=== PATIENT | male | born 1970 | race Caucasian/White ===

== ENCOUNTER 2023-11-01 00:50 | Emergency (ER) | payer OTHER ==
--- NOTE | 2023-11-01 01:27 | ED Physician Documentation ---
History of Present Illness - Stated complaint Stated Complaint: ABD/BACK PX - Chief complaint Chief Complaint: Abd Pain - History obtained from History obtained from: Patient - Additonal information Additional information: 53yM with history of esophageal rigidity and narrowing, gastric scarring, gerd, p/w nbnb n/v and epigastric pain intermittent X 3 weeks, worsening tonight. denies fever, diarrhea, cp, soa or urinary sx. PD PAST MEDICAL HISTORY - Past Medical History Past Medical History: Yes Cardiovascular: High cholesterol Endocrine/Autoimmune: HyPOthyroidism GI: GERD - Past Surgical History Past Surgical History: Yes General: Appendectomy - Present Medications Home Medications: Ambulatory Orders Medication Instructions Recorded Confirmed Aspirin Chewable [[place] 81 mg PO DAILY 11/01/23 11/01/23 Aspirin] Atorvastatin Calcium [Atorvaliq] 20 mg PO DAILY 11/01/23 11/01/23 Cholecalciferol (Vitamin D3) 1 tab PO DAILY 11/01/23 11/01/23 [Vitamin D3] Esomeprazole Magnesium [Nexium 20 mg PO DAILY 11/01/23 11/01/23 24Hr] Levothyroxine Sodium 1 cap PO DAILY 11/01/23 11/01/23 Ondansetron Odt [Zofran Odt] 4 mg TL Q6H PRN #10 tablet 11/01/23 - Allergies Allergies/Adverse Reactions: Allergies Allergy/AdvReac Type Severity Reaction Status Date / Time pregabalin [From Lyrica] Allergy Hallucinati Verified 11/01/23 01:11 ons - Social History Does the pt smoke?: No Smoking Status: Never smoker Does the pt drink ETOH?: No Does the pt have substance abuse?: No - Immunizations Immunizations are current?: Yes - POLST Patient has POLST: No PD ED PE NORMAL - Vitals Vital signs reviewed: Yes - General General: Alert and oriented X 3, No acute distress, Well developed/nourished - HEENT HEENT: Atraumatic, PERRL, EOMI - Neck Neck: Supple, no meningeal sign - Cardiac Cardiac: RRR - Respiratory Respiratory: No respiratory distress, Clear bilaterally - Abdomen Abdomen: Non tender, Non distended, Other (epigastrium discomfort to palpation) - Back Back: No CVA TTP - Derm Derm: Normal color, Warm and dry Results - Vitals Vitals: Vital Signs - 24 hr 11/01/23 11/01/23 01:06 02:20 Temperature 36.3 C L Heart Rate 71 58 L Respiratory 18 15 Rate Blood Pressure 128/88 H 118/71 O2 Saturation 97 95 Oxygen O2 Source Room air - EKG (time done) 0112 EKG releavant findings:: EKG personally interpreted by author of this note. Relevant findings are: Rate: Rate (enter#) (64) Rhythm: NSR [place]: Normal Intervals: Normal [place] QRS: Normal Ischemia: Normal ST segments - Labs Labs: Laboratory Tests 11/01/23 11/01/23 11/01/23 01:25 01:28 01:28 WBC 12.2 H RBC 5.01 Hgb 15.5 Hct 44.7 MCV 89.2 MCH 30.9 MCHC 34.7 RDW 12.9 Plt Count 317 MPV 9.5 Neut # (Auto) 6.4 Lymph # (Auto) 4.3 H [place] # (Auto) 0.8 Eos # (Auto) 0.6 Baso # (Auto) 0.2 H Absolute Nucleated RBC 0.00 Nucleated RBC % 0.0 Sodium 136 Potassium 3.5 Chloride 98 L Carbon Dioxide 29 Anion Gap 9.0 BUN 17 Creatinine 1.0 Estimated GFR (MDRD) 78 L Glucose 117 H Calcium 9.3 Total Bilirubin 1.1 H AST 22 ALT 54 Alkaline Phosphatase 65 Total Protein 7.1 Albumin 4.6 Globulin 2.5 Albumin/Globulin Ratio 1.8 Lipase 172 H Urine Color YELLOW Urine Clarity CLEAR Urine pH 6.0 Ur Specific [place] 1.025 Urine Protein NEGATIVE Urine Glucose (UA) NEGATIVE Urine Ketones TRACE Urine Occult Blood NEGATIVE Urine Nitrite NEGATIVE Urine Bilirubin NEGATIVE Urine Urobilinogen 1 (NORMAL) Ur Leukocyte Esterase NEGATIVE Ur Microscopic Review NOT INDICATED Urine Culture Comments NOT INDICATED PD Medical Decision Making - ED course ED course: 53yM presents to the ED with epigastric abdominal pain, nausea and vomiting likely 2/2 gerd and structural GI issues. Labwork without acute issues. Patient feeling better s/p symptomatic care. plan to f/u outpatient with his GI. return precautions given. Departure - Departure Disposition: 01 Home, Self Care Clinical Impression: Vomiting, Abdominal pain Condition: Stable Instructions: GERD Prescriptions: Ondansetron Odt [Zofran Odt] 4 mg TL Q6H PRN #10 tablet PRN Reason: Nausea / Vomiting Comments: You were seen in the emergency department for abdominal pain and vomiting. Your labwork uncovered no emergent issues but you do need to follow up with [facility]. Electronic prescription for zofran was sent to [facility] in [place]. Please follow-up with your primary care provider as well and return to the emergency department if you have any new or worsening symptoms or other concerns. Forms: PCP List
[2023-11-01] MEDS ORDERED: SODIUM CHLORIDE 0.9% 1,000 ML IV STA (01:34)
[2023-11-01 01:35] LABS: BASOPHILS # (AUTO) 0.2 10^3/uL (0.0-0.1); BASOPHILS % (AUTO) 1.3 %; EOSINOPHILS # (AUTO) 0.6 10^3/uL (0.0-0.7); EOSINOPHILS % (AUTO) 4.8 %; HCT - HEMATOCRIT 44.7 % (42.0-52.0); HGB - HEMOGLOBIN 15.5 g/dL (14.0-18.0); LYMPHOCYTES # (AUTO) 4.3 10^3/uL (1.5-3.5); MEAN CORPUSCULAR HEMOGLOBIN 30.9 pg (27.0-31.0); MEAN CORPUSCULAR HGB CONC 34.7 g/dL (32.0-36.0); MEAN CORPUSCULAR VOLUME 89.2 fL (80.0-94.0); MEAN PLATELET VOLUME 9.5 fL (7.4-11.4); MONOCYTES # (AUTO) 0.8 10^3/uL (0.0-1.0); MONOCYTES % (AUTO) 6.4 %; NEUTROPHILS # (AUTO) 6.4 10^3/uL (1.5-6.6); NEUTROPHILS % (AUTO) 52.3 %; PLT - PLATELET COUNT 317 10^3/uL (130-450); RED BLOOD COUNT 5.01 10^6/uL (4.70-6.10); RED CELL DISTRIBUTION WIDTH 12.9 % (12.0-15.0); WHITE BLOOD COUNT 12.2 x10^3/uL (4.8-10.8)
[2023-11-01] MEDS ORDERED: diphenhydrAMINE ELIXIR 25 MG/10 ML UDC PO STA (01:35)
[2023-11-01] MEDS ORDERED: LIDOCAINE VISCOUS 2% 15 ML ORAL SYRINGE MM STA (01:35)
[2023-11-01] MEDS ORDERED: ONDANSETRON 4 MG/2 ML VIAL IVP STA (01:35)
[2023-11-01] MEDS ORDERED: MAG HYDROX/AL HYDROX/SIMETH 30 ML UDC PO STA (01:35)
[2023-11-01] MEDS ORDERED: FAMOTIDINE 20 MG/2 ML VIAL IVP STA (01:35)
[2023-11-01 01:40] LABS: GLUCOSE, URINE (UA) NEGATIVE (NEGATIVE); KETONES,URINE (UA) TRACE mg/dL (NEGATIVE); LEUKOCYTE ESTERASE, URINE NEGATIVE (NEGATIVE); NITRITE,URINE NEGATIVE (NEGATIVE); OCCULT BLOOD,URINE NEGATIVE (NEGATIVE); PROTEIN,URINE NEGATIVE (NEGATIVE); UROBILINOGEN,URINE 1 (NORMAL) E.U./dL (NORMAL)
[2023-11-01 01:44] LABS: BILIRUBIN,URINE NEGATIVE (NEGATIVE); CLARITY,URINE CLEAR (CLEAR); ICTOTEST,URINE NEGATIVE
[2023-11-01 02:01] LABS: ALBUMIN 4.6 g/dL (3.2-5.5); ALBUMIN/GLOBULIN RATIO 1.8 (1.0-2.2); BILIRUBIN,TOTAL 1.1 mg/dL (0.2-1.0); CALCIUM 9.3 mg/dL (8.5-10.3); POTASSIUM 3.5 mmol/L (3.5-4.5); TOTAL PROTEIN 7.1 g/dL (6.4-8.9)
[2023-11-01 02:58] VITALS: BP 123/80
[2023-11-01 03:08] VITALS: O2SAT 100
== END 2023-11-01 03:08 | disposition home or self-care (01) ==
LOC: ED 00:50
DX: R11.2 Nausea with vomiting, unspecified (principal); R10.13 Epigastric pain
CPT/HCPCS: 36415; 80053; 81003; 83690; 85025; 93005; 96374; 96375; 99284; A9270; 81001; 87086

== ENCOUNTER 2023-12-02 11:16 | Day surgery (SDC) | payer OTHER ==
[2023-12-02] MEDS ORDERED: LACTATED RINGERS 1,000 ML IV ONE ×2 (11:55→13:10)
[2023-12-02] MEDS ORDERED: PROPOFOL 500 MG/50 ML 500 MG/50 ML VIAL ONE (12:01)
[2023-12-02] MEDS ORDERED: LIDOCAINE-PF 2% 10 ML AMP SUBQ ONE (12:01)
[2023-12-02] MEDS ORDERED: MIDAZOLAM 2 MG/2 ML VIAL ONE (12:01)
--- NOTE | 2023-12-02 12:07 | ANESTHESIA ---
Pre-Anesthesia VS, & Labs - Diagnosis abd pain, screening, gerd - Procedure egd, cscope Vital Signs: Temp Pulse Resp BP Pulse Ox O2 Flow Rate 36.2 C L 62 17 121/76 98 12/02/23 11:30 12/02/23 11:30 12/02/23 11:30 12/02/23 11:30 12/02/23 11:30 Height: 5 ft 9 in Weight (kg): 86 kg Body Mass Index: 28.0 BMI Classification: Overweight - NPO >8 hours Last Fluid Intake: am prep - Lab Results Lab results reviewed: Yes Home Medications and Allergies Home Medications: Ambulatory Orders Albuterol 2.5 mg INH TID 12/01/23 Escitalopram [Lexapro] 10 mg PO DAILY 12/01/23 Esomeprazole Magnesium [Nexium 24Hr] 20 mg PO DAILY 12/01/23 Atorvastatin Calcium [Atorvaliq] 20 mg PO DAILY 11/01/23 Levothyroxine Sodium 1 cap PO DAILY 11/01/23 Albuterol 2.5 mg INH TID 12/01/23 Escitalopram [Lexapro] 10 mg PO DAILY 12/01/23 Esomeprazole Magnesium [Nexium 24Hr] 20 mg PO DAILY 12/01/23 Allergies/Adverse Reactions: Allergies Allergy/AdvReac Type Severity Reaction Status Date / Time pregabalin [From Lyrica] Allergy Hallucinati Verified 11/01/23 01:11 ons Anes History & Medical History - Anesthetic History Anesthesia Complications: reports: No previous complications Family history of Anesthesia Complications: Denies Family history of Malignant Hyperthermia: Denies - Medical History Cardiovascular: reports: High cholesterol Pulmonary: reports: Asthma Gastrointestinal: reports: GERD, Hiatal hernia Urinary: reports: None Musculoskeletal: reports: None Endocrine/Autoimmune: reports: HyPOthyroidism. denies: Type 2 diabetes Skin: reports: None Smoking Status: Never smoker - Surgical History General: reports: Appendectomy, EGD Exam General: Alert, Oriented x3, Cooperative Dental: WNL Mouth Openin Fingerbreadth Neck Mobility: Normal Mallampati classification: II Respiratory: Lungs clear, Normal breath sounds, No respiratory distress, Decreased breath sounds Cardiovascular: Regular rate Plan Anesthesia Type: Total IV Consent for Procedure(s) Verified and Reviewed: Yes Code Status: Attempt Resuscitation ASA classification: 2-Mild systemic disease Is this case an emergency?: No
[2023-12-02] MEDS ORDERED: PROPOFOL 200 MG/20 ML VIAL IVP ONE ×2 (12:36→12:53)
[2023-12-02 13:23] VITALS: BP 102/61
[2023-12-02 13:43] VITALS: O2SAT 97
--- NOTE | 2023-12-02 14:04 | ANESTHESIA POST OP EVALUATION ---
Anesthesia Post Eval - Post Anesthesia Eval Vitals: Last Vital Signs Temp 36.2 C L 12/02/23 11:30 Pulse 62 12/02/23 13:38 Resp 17 12/02/23 13:38 BP 102/61 12/02/23 13:38 Pulse Ox 97 12/02/23 13:38 O2 Flow Rate CV Function Including HR & BP: Stable Pain Control: Satisfactory Nausea & Vomiting: Negative Mental Status: Baseline Respiratory Status: Airway Patent Hydration Status: Satisfactory Anesthesia Complications: None
== END 2023-12-02 11:17 | disposition home or self-care (01) ==
LOC: SDS 11:16
PROVIDERS: ATTEND Surgery
PROC: 0DBK8ZZ Excision of Ascending Colon, Via Natural or Artificial Opening Endoscopic (ICD-10-PCS; 2023-12-02)
PROC: 0DBL8ZZ Excision of Transverse Colon, Via Natural or Artificial Opening Endoscopic (ICD-10-PCS; 2023-12-02)
PROC: 0DB58ZX Excision of Esophagus, Via Natural or Artificial Opening Endoscopic, Diagnostic (ICD-10-PCS; principal; 2023-12-02 13:00)
PROC: 0DB78ZX Excision of Stomach, Pylorus, Via Natural or Artificial Opening Endoscopic, Diagnostic (ICD-10-PCS; 2023-12-02 13:00)
DX: Z12.11 Encounter for screening for malignant neoplasm of colon (principal); D12.3 Benign neoplasm of transverse colon; D12.2 Benign neoplasm of ascending colon; K21.9 Gastro-esophageal reflux disease without esophagitis; R10.13 Epigastric pain; R14.0 Abdominal distension (gaseous); Z80.0 Family history of malignant neoplasm of digestive organs; Z83.719 Family history of colon polyps, unspecified; K44.9 Diaphragmatic hernia without obstruction or gangrene; J45.909 Unspecified asthma, uncomplicated
CPT/HCPCS: 43239; 45380; 45385; J7120

== ENCOUNTER 2023-12-03 22:19 | Emergency (ER) | payer OTHER ==
[2023-12-03] MEDS ORDERED: ONDANSETRON 4 MG/2 ML VIAL IVP STA (22:28)
[2023-12-03] MEDS ORDERED: SODIUM CHLORIDE 0.9% 1,000 ML IV STA (22:28)
[2023-12-03] MEDS ORDERED: MORPHINE 2 MG/ML CARPUJECT IVP STA (22:28)
[2023-12-03 22:42] LABS: BASOPHILS % (AUTO) 0.4 %; EOSINOPHILS # (AUTO) 0.1 10^3/uL (0.0-0.7); EOSINOPHILS % (AUTO) 1.4 %; HCT - HEMATOCRIT 43.6 % (42.0-52.0); LYMPHOCYTES # (AUTO) 3.5 10^3/uL (1.5-3.5); LYMPHOCYTES % (AUTO) 33.3 %; MEAN CORPUSCULAR HGB CONC 34.4 g/dL (32.0-36.0); MEAN CORPUSCULAR VOLUME 87.2 fL (80.0-94.0); MEAN PLATELET VOLUME 10.2 fL (7.4-11.4); MONOCYTES # (AUTO) 0.7 10^3/uL (0.0-1.0); MONOCYTES % (AUTO) 6.9 %; NEUTROPHILS % (AUTO) 57.8 %; PLT - PLATELET COUNT 260 10^3/uL (130-450); RED CELL DISTRIBUTION WIDTH 12.4 % (12.0-15.0); WHITE BLOOD COUNT 10.4 x10^3/uL (4.8-10.8)
[2023-12-03 22:49] LABS: PT - PROTHROMBIN TIME 11.1 secs (9.9-12.6)
[2023-12-03 23:01] LABS: ALBUMIN 4.5 g/dL (3.2-5.5); ALBUMIN/GLOBULIN RATIO 1.6 (1.0-2.2); BILIRUBIN,TOTAL 1.3 mg/dL (0.2-1.0); CALCIUM 9.3 mg/dL (8.5-10.3); CREATININE 0.9 mg/dL (0.6-1.3); POTASSIUM 3.4 mmol/L (3.5-4.5); TOTAL PROTEIN 7.4 g/dL (6.4-8.9)
[2023-12-03] MEDS ORDERED: iohexoL-300 100 ML VIAL ONE (23:35)
--- NOTE | 2023-12-03 23:49 | ED Physician Documentation ---
PD HPI ABD PAIN - Stated complaint Stated Complaint: ABD PX/POST OP - Chief complaint Chief Complaint: Abd Pain - History obtained from History obtained from: Patient, Family - Additional information Additional information: 53-year-old male with history of Gastric stricture, GERD presents by private vehicle from home for nausea, vomiting, midepigastric abdominal pain that began after eating dinner. Patient underwent colonoscopy and EGD with Dr. Jernigan on 12/02/2022 where biopsies were taken and patient was discharged home after an eventful scope. Patient ate some Scal potatoes and several bites of ham when symptoms began. No medications taken prior to arrival. PD PAST MEDICAL HISTORY - Past Medical History Past Medical History: Yes Cardiovascular: High cholesterol Respiratory: Asthma Endocrine/Autoimmune: HyPOthyroidism GI: GERD, Hiatal hernia : None HEENT: Chronic vision loss Psych: Anxiety Musculoskeletal: None Derm: None - Past Surgical History Past Surgical History: Yes General: Appendectomy, Colonoscopy, EGD - Present Medications Home Medications: Ambulatory Orders Medication Instructions Recorded Confirmed Atorvastatin Calcium [Atorvaliq] 20 mg PO DAILY 11/01/23 12/03/23 Levothyroxine Sodium 112 mcg PO DAILY 11/01/23 12/03/23 Albuterol 2.5 mg INH TID PRN 12/01/23 12/03/23 Escitalopram [Lexapro] 10 mg PO DAILY 12/01/23 12/03/23 Esomeprazole Magnesium [Nexium 20 mg PO DAILY 12/01/23 12/03/23 24Hr] - Allergies Allergies/Adverse Reactions: Allergies Allergy/AdvReac Type Severity Reaction Status Date / Time pregabalin [From Lyrica] Allergy Hallucinati Verified 12/03/23 22:22 ons - Social History Does the pt smoke?: No Smoking Status: Never smoker Does the pt drink ETOH?: No Does the pt have substance abuse?: No - Immunizations Immunizations are current?: Yes - POLST Patient has POLST: No Results - Vitals Vitals: Vital Signs - 24 hr 12/03/23 12/03/23 12/04/23 22:22 23:32 00:03 Temperature 36.8 C Heart Rate 54 L 53 L 67 Respiratory 18 17 13 Rate Blood Pressure 160/85 H 146/83 H 116/63 O2 Saturation 100 100 93 12/04/23 12/04/23 12/04/23 01:00 05:08 07:00 Temperature Heart Rate 71 55 L 59 L Respiratory 16 19 16 Rate Blood Pressure 142/79 H 128/72 129/79 O2 Saturation 97 98 96 Oxygen O2 Source Room air - EKG (time done) 2236 EKG releavant findings:: EKG personally interpreted by author of this note. Relevant findings are: Rate: Rate (enter#) (50) Rhythm: Sinus bradycardia [place]: Normal Intervals: Normal [place] QRS: Normal Ischemia: Normal ST segments - Labs Labs: Laboratory Tests 12/03/23 12/03/23 12/03/23 22:39 22:39 22:39 WBC 10.4 RBC 5.00 Hgb 15.0 Hct 43.6 MCV 87.2 MCH 30.0 MCHC 34.4 RDW 12.4 Plt Count 260 MPV 10.2 Neut # (Auto) 6.0 Lymph # (Auto) 3.5 [place] # (Auto) 0.7 Eos # (Auto) 0.1 Baso # (Auto) 0.0 Absolute Nucleated RBC 0.00 Nucleated RBC % 0.0 PT 11.1 INR 1.0 Sodium 136 Potassium 3.4 L Chloride 100 L Carbon Dioxide 24 Anion Gap 12.0 BUN 9 Creatinine 0.9 Estimated GFR (MDRD) 88 L Glucose 125 H Calcium 9.3 Total Bilirubin 1.3 H AST 15 ALT 23 Alkaline Phosphatase 67 Total Protein 7.4 Albumin 4.5 Globulin 2.9 Albumin/Globulin Ratio 1.6 Lipase 57 Urine Color Urine Clarity Urine pH Ur Specific [place] Urine Protein Urine Glucose (UA) Urine Ketones Urine Occult Blood Urine Nitrite Urine Bilirubin Urine Urobilinogen Ur Leukocyte Esterase Ur Microscopic Review Urine Culture Comments 12/04/23 01:16 WBC RBC Hgb Hct MCV MCH MCHC RDW Plt Count MPV Neut # (Auto) Lymph # (Auto) [place] # (Auto) Eos # (Auto) Baso # (Auto) Absolute Nucleated RBC Nucleated RBC % PT INR Sodium Potassium Chloride Carbon Dioxide Anion Gap BUN Creatinine Estimated GFR (MDRD) Glucose Calcium Total Bilirubin AST ALT Alkaline Phosphatase Total Protein Albumin Globulin Albumin/Globulin Ratio Lipase Urine Color YELLOW Urine Clarity CLEAR Urine pH 7.0 Ur Specific Points <=1.005 Urine Protein NEGATIVE Urine Glucose (UA) NEGATIVE Urine Ketones NEGATIVE Urine Occult Blood NEGATIVE Urine Nitrite NEGATIVE Urine Bilirubin NEGATIVE Urine Urobilinogen 0.2 (NORMAL) Ur Leukocyte Esterase NEGATIVE Ur Microscopic Review NOT INDICATED Urine Culture Comments NOT INDICATED PD Medical Decision Making - ED course Complexity details: reviewed old records, reviewed results, re-evaluated patient, considered differential, d/w patient, d/w family, d/w analytics consultant ED course: Right upper quadrant abdominal discomfort after eating. Patient has recent colonoscopy but his pain is localized to the right upper quadrant. Will order labs, pain medications, CT imaging. Laboratory work is reviewed, no leukocytosis. Electrolytes within normal limits. T. bili 1.3, however this is unchanged significantly from previous results. CT of the abdomen and pelvis with contrast shows gallstones with gallbladder thickening concerning for acute cholecystitis. Patient reassessed, resting comfortably in bed, states his pain is controlled but he does wince when his upper quadrant is palpated. Call placed to Dr. Iyer of general surgery, who will see the patient in the morning and requested ultrasound, which was ordered for the morning. Patient and significant other updated at bedside of general surgery recommendations and plan. They are in agreement at this time. Care of patient signed to Dr. Malloy at 0700. Pending general surgeon evaluation and US of RUQ Departure - Departure Disposition: 01 Home, Self Care Clinical Impression: Biliary colic, Cholelithiases Condition: Stable Instructions: ED Gallstone W Biliary Colic Follow-Up: Sung Jernigan MD [Provider Admit Priv/Credential] - Comments: You have been evaluated with CT scan, ultrasound, and labs, and have seen the surgeon in consult here in the emergency department. Your scopes from a few days ago looked good, and the surgeon feels that most likely, your upper abdominal pain is actually due to the gallstone that is in your gallbladder. It may be beneficial for you to have your gallbladder removed and as such, the surgery team would like to see you as an outpatient in their clinic. They are making arrangements for this at this time. Because you do not currently have inflammation of the gallbladder or any obstruction, you do not need to have your gallbladder emergently removed today. However, if your symptoms get worse and become unbearable, or if you become jaundiced and develop a fever and vomiting that will not stop, please return to the emergency department. Forms: PCP List Discharge Date/Time: 12/04/23 09:04
[2023-12-04] MEDS ORDERED: iohexoL-300 100 ML VIAL IVP ONE (00:10)
--- NOTE | 2023-12-04 00:45 | CT Report ---
PROCEDURE: Abdomen/Pelvis W INDICATIONS: POSTPRANDIAL MIDEPIGASTRIC/RUQ PAIN CONTRAST: 100 ML OMNI 300 TECHNIQUE: After the administration of intravenous contrast, a CT scan of the abdomen and pelvis was performed. Images were recorded and evaluated at appropriate window settings. Reformats: coronal and sagittal. F or radiation dose reduction, the following was used: automated exposure control, adjustment of mA and /or kV according to patient size. COMPARISON: None. FINDINGS: Image quality: Excellent. Lung bases and heart: Unremarkable. Liver: No solid mass. Gallbladder and biliary tree: The gallbladder appears mildly inflamed, with slight gallbladder wall t hickening. Note is made of somewhat serpiginous calcifications adjacent to the gallbladder in a patte rn suggestive of contiguous gallstones within the cystic duct best seen on series 2 image 46. Similar radiodensity is seen within the posterior border of the gallbladder lumen indicating densely calcifi ed gallstones within the gallbladder itself. Spleen: No splenomegaly. Pancreas: No pancreatic ductal dilation. Adrenals: No adrenal nodule. Kidneys and ureters: No hydronephrosis. No renal cystic lesion which requires follow up. No solid mas s. Bowel and peritoneum: No bowel distension. No pathologic free fluid. Lymph nodes: No central or retroperitoneal adenopathy. Vessels: No infrarenal aortic aneurysm. PELVIS Reproductive organs: Unremarkable. Bladder: No abnormal wall thickening, accounting for underdistention. Pelvic lymph nodes: No pelvic adenopathy by size criteria. Adjacent to the cecum. There is linear rad iodensity suggestive of possible prior appendectomy. Bones: No aggressive osseous abnormality. Other: No significant ventral or inguinal hernia. IMPRESSION: Abnormal gallbladder inflammation with what appears to be contiguous gallstones densely calcified wit hin the cystic duct. Similar radiodensity is present within the dependent margin of the gallbladder l umen. Gallbladder wall thickening is present. Cholecystitis is suspected. Possible prior appendectomy . Reviewed by: Hai Ram MD on 12/04/2023 12:43 AM PST Approved by: Hai Ram MD on 12/04/2023 12:43 AM PST Station ID: [id number]
[2023-12-04] MEDS ORDERED: KETOROLAC 15 MG/ML VIAL IVP STA (01:01)
[2023-12-04] MEDS ORDERED: SODIUM CHLORIDE 0.9% 1,000 ML IV STA (01:01)
[2023-12-04 02:01] LABS: BILIRUBIN,URINE NEGATIVE (NEGATIVE); GLUCOSE, URINE (UA) NEGATIVE (NEGATIVE); KETONES,URINE (UA) NEGATIVE (NEGATIVE); LEUKOCYTE ESTERASE, URINE NEGATIVE (NEGATIVE); NITRITE,URINE NEGATIVE (NEGATIVE); OCCULT BLOOD,URINE NEGATIVE (NEGATIVE); PROTEIN,URINE NEGATIVE (NEGATIVE); UROBILINOGEN,URINE 0.2 (NORMAL) E.U./dL (NORMAL)
[2023-12-04 02:04] LABS: CLARITY,URINE CLEAR (CLEAR)
[2023-12-04 07:19] VITALS: BP 129/79; O2SAT 96
--- NOTE | 2023-12-04 08:44 | ED Physician Documentation ---
ED Addendum - Addendum Addendum: 12/04/23 08:42 The patient was shot signed out to me at change of shift, pending evaluation by surgery after presenting to the emergency department on my partner's shift with upper abdominal pain. The patient had just had endoscopy and colonoscopy a few days ago which were unremarkable. His labs were also unremarkable. CT head showed possible choledocholithiasis but ultrasound showed a contracted gallbladder with a stone in the gallbladder but normal common bile duct diameter and no obvious choledocholithiasis. The patient was evaluated by Dr. Iyer of surgery, who felt at this point the patient most likely has biliary colic. He feels the patient is a good candidate for outpatient follow-up and consideration of elective cholecystectomy. He has notified the clinic to help arrange some follow-up for this patient and We have given the patient indications for the return to the emergency department, including worsening pain, intractable vomiting, fever, and/or jaundice. Final impression: 1. Biliary colic 2. Cholelithiasis Disposition: Discharged home in stable and improved condition.
--- NOTE | 2023-12-04 08:47 | CONSULTATION NOTE ---
Surgery Consult - Home Meds/Allergies Home Medications: Patient History Medication Instructions Recorded Confirmed Atorvastatin Calcium [Atorvaliq] 20 mg PO DAILY 11/01/23 12/03/23 Levothyroxine Sodium 112 mcg PO DAILY 11/01/23 12/03/23 Albuterol 2.5 mg INH TID PRN 12/01/23 12/03/23 Escitalopram [Lexapro] 10 mg PO DAILY 12/01/23 12/03/23 Esomeprazole Magnesium [Nexium 20 mg PO DAILY 12/01/23 12/03/23 24Hr] Allergies/Adverse Reactions: Allergies Allergy/AdvReac Type Severity Reaction Status Date / Time pregabalin [From Lyrica] Allergy Hallucinati Verified 12/03/23 22:22 ons - Vital Signs Vital Signs: Last Vital Signs Temp 98.2 F 12/03/23 22:22 Pulse 59 L 12/04/23 07:00 Resp 16 12/04/23 07:00 BP 129/79 12/04/23 07:00 Pulse Ox 96 12/04/23 07:00 O2 Flow Rate Intake & Output: Intake & Output 12/01/23 12/02/23 12/03/23 12/04/23 23:59 23:59 23:59 23:59 Intake Total 1000 Balance 1000 - Lab Results Result Diagrams: 12/03/23 22:39 12/03/23 22:39 - Consultation Note Consultation Note: General Surgery Consultation Note Assessment: 1) Biliary colic, recurrent. No clinical, lab, or image findings consistent with acute cholecystitis or ascending cholangitis. The patient's abdominal discomfort has resolved. 2) History of GERD/Esophageal stricture Recommendation: 1) Avoid fatty foods 2) Continue PPI for GERD symptoms 3) Arrange for this patient to be seen by Dr. Jernigan in the out-patient clinic to be scheduled for elective cholecystectomy <><><><><><><><><><> Reason for Consultation Abdominal pain BARBARA Nieto is a 53 year old male who while swallowing a potato last evening developed mid-epigastric pain that was sharp and constant and radiated to the RUQ. It was similar to prior episodes of RUQ discomfort that have occurred but worse in severity. He was seen by Dr. Jernigan 2 days ago during which time EGD and CS were performed. There was no evidence of esophagitis, gastritis, or esophageal narrowing on EGD. In the ED, IV analgesics were given to control his discomfort. A CT scan identified a few small gallstones. This morning, an US was performed. During my exam at 0800, the patient was in no pain and without nausea or emesis. Past Medical History GERD Hyperlipidemia Hypothyroidism Anxiety Past Surgical History Appendectomy Current Medications See "Medication" section Allergies See "Allergy" section ROS Pertinent positives At the present time he is asymptomatic. On presentation to the ED he had epigastric and RUQ pain, mild nausea and emesis All other reviewed systems negative Physical Examination Vital Signs: See "Vital Signs" section BMI: 28 GENERAL APPEARANCE: Normal development, normal body habitus, normal grooming PSYCHIATRIC: AAO; Comfortable EYES: Pupils equal, round and reactive to light, sclera anicteric EARS, NOSE, MOUTH, THROAT: Hearing normal, Oral mucous membranes moist and without lesions; NECK: No crepitus, lymphadenopathy, or thyromegaly LUNGS: Clear to auscultation without wheezing; No use of accessory muscles to breathe CARDIOVASCULAR: Heart-NSR without murmurs; Palpable carotid arteries - no bruits; ABD: Soft, no distension, no RUQ tenderness or fullness; BS+ LYMPHATIC: Neck, Axillae, Groin no palpable adenopathy SKIN: Anicteric; No rashes, lesions, Ulcerations Labs See "Labs" section T.Carl 1.3 (chronic); All other LFTs normal Imaging CT Abd/Pelvis - Gallstones in an otherwise normal appearing gallbladder that is not-contracted but not distended US RUQ - Small gallstones in a contracted gallbladder All images were personally reviewed by me for this encounter. Jacob Iyer MD, FACS General Surgery Service [phone]
--- NOTE | 2023-12-04 09:06 | Ultrasound Report ---
PROCEDURE: Abdomen Limited INDICATIONS: RUQ PAIN, POSS CHOLECYSTITIS TECHNIQUE: Real-time focused scanning was performed of the abdomen, with image documentation. COMPARISONS: None. FINDINGS: Liver: Liver is normal in size and heterogeneous in echotexture. The main portal vein demonstrates n ormal size and hepatopedal flow. Gallbladder: The gallbladder is decompressed, which limits its evaluation. Echogenic gallstones can b e seen within the gallbladder. Mild pericholecystic fluid is seen. The gallbladder wall measures 5 mm . The sonographic Hernandez's is negative. Biliary ducts: Intrahepatic bile ducts are non-dilated. Extrahepatic bile duct caliber measures 4 m m. Normal is 6-7 mm or less in diameter, or 10 mm or less post-cholecystectomy. Pancreas: The pancreas is not well seen. Right kidney: Normal in size and echotexture. Right kidney measures 10.7 cm long. No hydronephrosis or nephrolithiasis. No solid masses. No complex renal cystic lesions which require follow-up. IVC: Intrahepatic inferior vena cava is patent. Miscellaneous: No free abdominal fluid. IMPRESSION: Gallstones and pericholecystic fluid can be seen. The gallbladder wall thickening is nonspecific, sec ondary to contracted state of the gallbladder. The sonographic Hernandez's is negative. No biliary dilatation is seen. Reviewed by: Patric Hernandez MD on 12/04/2023 8:04 AM [facility] Approved by: Patric Hernandez MD on 12/04/2023 8:04 AM [facility] Station ID: [id number]
== END 2023-12-04 09:04 | disposition home or self-care (01) ==
LOC: ED 22:19
DX: K80.40 Calculus of bile duct with cholecystitis, unspecified, without obstruction (principal)
CPT/HCPCS: 36415; 74177; 76705; 80053; 81003; 83690; 85025; 85610; 93005; 96374; 96375; 99284; Q9967; 81001; 87086

== ENCOUNTER 2023-12-13 00:33 | Emergency (ER) | payer OTHER ==
[2023-12-13 01:53] LABS: BASOPHILS # (AUTO) 0.1 10^3/uL (0.0-0.1); BASOPHILS % (AUTO) 0.8 %; EOSINOPHILS # (AUTO) 0.4 10^3/uL (0.0-0.7); EOSINOPHILS % (AUTO) 3.2 %; HCT - HEMATOCRIT 44.3 % (42.0-52.0); HGB - HEMOGLOBIN 14.8 g/dL (14.0-18.0); LYMPHOCYTES # (AUTO) 3.4 10^3/uL (1.5-3.5); LYMPHOCYTES % (AUTO) 29.8 %; MEAN CORPUSCULAR HEMOGLOBIN 30.2 pg (27.0-31.0); MEAN CORPUSCULAR HGB CONC 33.4 g/dL (32.0-36.0); MEAN CORPUSCULAR VOLUME 90.4 fL (80.0-94.0); MEAN PLATELET VOLUME 9.5 fL (7.4-11.4); MONOCYTES # (AUTO) 0.9 10^3/uL (0.0-1.0); MONOCYTES % (AUTO) 7.8 %; NEUTROPHILS # (AUTO) 6.5 10^3/uL (1.5-6.6); PLT - PLATELET COUNT 348 10^3/uL (130-450); RED CELL DISTRIBUTION WIDTH 12.7 % (12.0-15.0); WHITE BLOOD COUNT 11.3 x10^3/uL (4.8-10.8)
[2023-12-13 02:14] LABS: ALBUMIN 4.3 g/dL (3.2-5.5); ALBUMIN/GLOBULIN RATIO 1.8 (1.0-2.2); BILIRUBIN,TOTAL 1.2 mg/dL (0.2-1.0); CALCIUM 9.7 mg/dL (8.5-10.3); POTASSIUM 3.9 mmol/L (3.5-4.5); TOTAL PROTEIN 6.7 g/dL (6.4-8.9)
[2023-12-13 03:48] VITALS: BP 141/96; O2SAT 100
--- NOTE | 2023-12-13 05:55 | ED Physician Documentation ---
PD HPI ABD PAIN - Stated complaint Stated Complaint: ABD PX - Chief complaint Chief Complaint: Abd Pain PD PAST MEDICAL HISTORY - Past Medical History Cardiovascular: High cholesterol Respiratory: Asthma Endocrine/Autoimmune: HyPOthyroidism GI: GERD, Hiatal hernia : None HEENT: Chronic vision loss Psych: Anxiety Musculoskeletal: None Derm: None - Past Surgical History Past Surgical History: Yes General: Appendectomy, Colonoscopy, EGD - Present Medications Home Medications: Ambulatory Orders Medication Instructions Recorded Confirmed Atorvastatin Calcium [Atorvaliq] 20 mg PO DAILY 11/01/23 12/13/23 Levothyroxine Sodium 112 mcg PO DAILY 11/01/23 12/13/23 Albuterol 2.5 mg INH TID PRN 12/01/23 12/13/23 Escitalopram [Lexapro] 10 mg PO DAILY 12/01/23 12/13/23 Esomeprazole Magnesium [Nexium 20 mg PO DAILY 12/01/23 12/13/23 24Hr] - Allergies Allergies/Adverse Reactions: Allergies Allergy/AdvReac Type Severity Reaction Status Date / Time pregabalin [From Lyrica] Allergy Hallucinati Verified 12/13/23 00:50 ons - Social History Does the pt smoke?: No Smoking Status: Never smoker Does the pt drink ETOH?: No Does the pt have substance abuse?: No - Immunizations Immunizations are current?: Yes - POLST Patient has POLST: No Results - Vitals Vitals: Vital Signs - 24 hr 12/13/23 12/13/23 00:47 03:39 Temperature 35.5 C L 30.3 C L Heart Rate 69 62 Respiratory 26 H 24 Rate Blood Pressure 131/87 H 141/96 H O2 Saturation 99 100 Oxygen O2 Source Room air - Labs Labs: Laboratory Tests 12/13/23 12/13/23 01:50 01:50 WBC 11.3 H RBC 4.90 Hgb 14.8 Hct 44.3 MCV 90.4 MCH 30.2 MCHC 33.4 RDW 12.7 Plt Count 348 MPV 9.5 Neut # (Auto) 6.5 Lymph # (Auto) 3.4 Mcminn # (Auto) 0.9 Eos # (Auto) 0.4 Baso # (Auto) 0.1 Absolute Nucleated RBC 0.00 Nucleated RBC % 0.0 Sodium 139 Potassium 3.9 Chloride 101 Carbon Dioxide 33 H Anion Gap 5.0 L BUN 11 Creatinine 1.0 Estimated GFR (MDRD) 78 L Glucose 107 H Calcium 9.7 Total Bilirubin 1.2 H AST 15 ALT 25 Alkaline Phosphatase 67 Total Protein 6.7 Albumin 4.3 Globulin 2.4 Albumin/Globulin Ratio 1.8 Lipase 43 PD Medical Decision Making - ED course ED course: I was not involved in this patient's ED care. Patient left without being seen by ED MD. Departure - Departure Forms: PCP List
== END 2023-12-13 05:55 | disposition left against medical advice (07) ==
LOC: ED 00:33
DX: Z53.21 Procedure and treatment not carried out due to patient leaving prior to being seen by health care provider (principal)
CPT/HCPCS: 36415; 80053; 83690; 85025

== ENCOUNTER 2023-12-18 01:17 | Emergency (ER) | payer OTHER ==
--- NOTE | 2023-12-18 01:32 | ED Physician Documentation ---
PD HPI ABD PAIN - Stated complaint Stated Complaint: NAUSEA/ABD PX - Chief complaint Chief Complaint: Abd Pain - History obtained from History obtained from: Patient - Additional information Additional information: HPI from patient. Patient c/o RUQ and epigastric pain, sudden onset one hour PLUM[employer] P[employer] FITTING with nausea and vomiting in proportion to severity of pain. Symptoms awoke patient from sleep, no exacerbating nor ameliorating factors. Similar symptoms which have been attributed to biliary colic. He is scheduled for cholecystectomy later this month. Review of Systems Constitutional: reports: Reviewed and negative Cardiac: reports: Reviewed and negative Respiratory: reports: Reviewed and negative GI: reports: Abdominal Pain, Nausea, Vomiting. denies: Constipation, Diarrhea, Hematemesis, Bloody / black stool PD PAST MEDICAL HISTORY - Past Medical History Past Medical History: Yes Cardiovascular: High cholesterol Respiratory: Asthma Endocrine/Autoimmune: HyPOthyroidism GI: GERD, Hiatal hernia : None HEENT: Chronic vision loss Psych: Anxiety Musculoskeletal: None Derm: None - Past Surgical History Past Surgical History: Yes General: Appendectomy, Colonoscopy, EGD - Present Medications Home Medications: Ambulatory Orders Medication Instructions Recorded Confirmed Atorvastatin Calcium [Atorvaliq] 20 mg PO DAILY 11/01/23 12/18/23 Levothyroxine Sodium 112 mcg PO DAILY 11/01/23 12/18/23 Albuterol 2.5 mg INH TID PRN 12/01/23 12/18/23 Escitalopram [Lexapro] 10 mg PO DAILY 12/01/23 12/18/23 Esomeprazole Magnesium [Nexium 20 mg PO DAILY 12/01/23 12/18/23 24Hr] oxyCODONE [Roxicodone] 5 mg PO Q4-6H PRN #14 tablet 12/18/23 - Allergies Allergies/Adverse Reactions: Allergies Allergy/AdvReac Type Severity Reaction Status Date / Time pregabalin [From Lyrica] Allergy Hallucinati Verified 12/18/23 01:27 ons - Social History Does the pt smoke?: No Smoking Status: Never smoker Does the pt drink ETOH?: No Does the pt have substance abuse?: No - Immunizations Immunizations are current?: Yes - POLST Patient has POLST: No PD ED PE NORMAL - Vitals Vital signs reviewed: Yes - General General: Alert and oriented X 3, No acute distress, Well developed/nourished - Cardiac Cardiac: RRR - Respiratory Respiratory: No respiratory distress, Clear bilaterally - Abdomen Abdomen: Normal bowel sounds, Soft, Non tender, Non distended - Derm Derm: Normal color, Warm and dry PD ED PE EXPANDED - Cardiac Cardiac: S3 Results - Vitals Vitals: Oxygen O2 Source Room air - Labs Labs: Laboratory Tests 12/18/23 12/18/23 02:10 02:10 WBC 9.2 RBC 4.96 Hgb 14.8 Hct 44.0 MCV 88.7 MCH 29.8 MCHC 33.6 RDW 12.5 Plt Count 308 MPV 10.0 Neut # (Auto) 4.5 Lymph # (Auto) 3.5 Schleicher # (Auto) 0.7 Eos # (Auto) 0.4 Baso # (Auto) 0.1 Absolute Nucleated RBC 0.00 Nucleated RBC % 0.0 Sodium 137 Potassium 3.6 Chloride 103 Carbon Dioxide 27 Anion Gap 7.0 BUN 9 Creatinine 0.9 Estimated GFR (MDRD) 88 L Glucose 121 H Calcium 9.0 Total Bilirubin 1.3 H AST 13 ALT 18 Alkaline Phosphatase 67 Total Protein 6.6 Albumin 4.2 Globulin 2.4 Albumin/Globulin Ratio 1.8 Lipase 110 H PD Medical Decision Making - ED course Complexity details: reviewed old records, reviewed results, re-evaluated patient, considered differential, d/w patient ED course: Normal CBC and no concerning findings on ER abdominal panel; normal LFTs except mildly elevated bilirubin (1.3) which is comparable to recent previous results. Minimally elevated lipase (110). He is given 15mg IV toradol, 1 liter NS IV bolus, 4mg IV zofran, 1 mg IV dilaudid. On reevaluation he is in NAD and patient reports resolution of symptoms. Results d/w patient, return precautions reviewed. Departure - Departure Disposition: 01 Home, Self Care Clinical Impression: Biliary colic Condition: Good Instructions: ED Gallstone W Biliary Colic Prescriptions: oxyCODONE [Roxicodone] 5 mg PO Q4-6H PRN #14 tablet PRN Reason: Abdominal Pain Comments: There were no concerning findings on tonight's blood tests. There were mild elevations and one of your liver function tests (bilirubin) which is likely due to the gallstones; the result of this test was similar to recent previous results that you have had. The remainder of the liver function tests were normal. I have electronically submitted a prescription for oxycodone (opiate/narcotic pain medication) to the [facility] pharmacy in [place]. Follow-up with the surgeon as scheduled for cholecystectomy (removal of the gallbladder). Please return to the emergency department if your symptoms worsen or if you develop new/concerning signs/symptoms (such as fever, intractable vomiting, severe abdominal pain and/or abdominal pain that does not respond to the prescribed medication). I am prescribing a short course of narcotic pain medication for you. These are potentially dangerous and addictive medications that should be used carefully. These medications may constipate you. Take an unwi-nfo-xdocdeh stool softener (docusate) twice daily with plenty of water while taking these medications. If you go 24 hours without a bowel movement, take [id number] miralax, per package instructions. Do not drink or drive while taking these medications. If you received narcotic or sedating medications while in the emergency department, do not drive for 24 hours. Store this medication in a safe, secure place and out of reach of children. It is a violation of federal law to give or sell this medication to another person or to use in a manner other than prescribed. The ED will not refill narcotic prescriptions, including prescriptions lost or stolen. To dispose of unwanted medications: 1. [facility] at [address] in [place] has a medication drop box. They accept prescription medications (in pill form) Tuesday through Tuesday 9:00 a.m. to 5:00 p.m. 2. [facility] accepts prescription medications (in pill form only) for disposal year round. Call for more information. 3. Contact the [facility] for the next [facility] sponsored prescription drug collection event. , [phone], or [phone]; Discharge Date/Time: 12/18/23 03:48
[2023-12-18] MEDS: SODIUM CHLORIDE 0.9% 1,000 ML IV STA (02:08)
[2023-12-18] MEDS: KETOROLAC 15 MG/ML VIAL IVP STA (02:08)
[2023-12-18] MEDS: ONDANSETRON 4 MG/2 ML VIAL IVP STA (02:08)
[2023-12-18] MEDS: HYDROmorphone 1 MG/ML CARPUJECT IVP STA (02:09)
[2023-12-18 02:23] LABS: BASOPHILS # (AUTO) 0.1 10^3/uL (0.0-0.1); BASOPHILS % (AUTO) 1.1 %; EOSINOPHILS # (AUTO) 0.4 10^3/uL (0.0-0.7); HGB - HEMOGLOBIN 14.8 g/dL (14.0-18.0); LYMPHOCYTES # (AUTO) 3.5 10^3/uL (1.5-3.5); MEAN CORPUSCULAR HEMOGLOBIN 29.8 pg (27.0-31.0); MEAN CORPUSCULAR HGB CONC 33.6 g/dL (32.0-36.0); MEAN CORPUSCULAR VOLUME 88.7 fL (80.0-94.0); MONOCYTES # (AUTO) 0.7 10^3/uL (0.0-1.0); MONOCYTES % (AUTO) 7.5 %; NEUTROPHILS # (AUTO) 4.5 10^3/uL (1.5-6.6); NEUTROPHILS % (AUTO) 49.2 %; PLT - PLATELET COUNT 308 10^3/uL (130-450); RED BLOOD COUNT 4.96 10^6/uL (4.70-6.10); RED CELL DISTRIBUTION WIDTH 12.5 % (12.0-15.0); WHITE BLOOD COUNT 9.2 x10^3/uL (4.8-10.8)
[2023-12-18 02:37] LABS: ALBUMIN 4.2 g/dL (3.2-5.5); ALBUMIN/GLOBULIN RATIO 1.8 (1.0-2.2); BILIRUBIN,TOTAL 1.3 mg/dL (0.2-1.0); CREATININE 0.9 mg/dL (0.6-1.3); POTASSIUM 3.6 mmol/L (3.5-4.5); TOTAL PROTEIN 6.6 g/dL (6.4-8.9)
[2023-12-18 03:27] VITALS: BP 122/75; O2SAT 94
[2023-12-18] MEDS: oxyCODONE/ACET 5/325 Prepack 4 PO STA (03:39)
== END 2023-12-18 03:48 | disposition home or self-care (01) ==
LOC: ED 01:17
DX: K80.70 Calculus of gallbladder and bile duct without cholecystitis without obstruction (principal); E80.7 Disorder of bilirubin metabolism, unspecified
CPT/HCPCS: 36415; 80053; 83690; 85025; 96374; 96375; 99283; 99284; J1170